=== PATIENT | female | born 1980 | race Caucasian/White ===

== ENCOUNTER → 2023-09-21 09:50 | Outpatient (REF) | payer OTHER, SELFPAY | LOC: HWRAD 09:50 | PROVIDERS: ATTENDING PHYSICIAN Physician Assistant Medical; FAMILY PHYSICIAN Physician Assistant; REFERRING PHYSICIAN Obstetrics & Gynecology | DX: Z15.01 Genetic susceptibility to malignant neoplasm of breast (principal); Z15.02 Genetic susceptibility to malignant neoplasm of ovary; Z15.09 Genetic susceptibility to other malignant neoplasm | CPT/HCPCS: 76830; 76856 ==

== ENCOUNTER → 2024-05-01 16:24 | Outpatient (REF) | payer OTHER, SELFPAY | LOC: RAD 16:24 | PROVIDERS: ATTENDING PHYSICIAN Obstetrics & Gynecology; FAMILY PHYSICIAN Family Medicine | DX: Z15.01 Genetic susceptibility to malignant neoplasm of breast (principal); Z15.02 Genetic susceptibility to malignant neoplasm of ovary; Z15.09 Genetic susceptibility to other malignant neoplasm | CPT/HCPCS: 76830; 76856 ==

== ENCOUNTER → 2024-11-05 10:23 | Outpatient (REF) | payer OTHER, SELFPAY | LOC: HWRAD 10:23 | PROVIDERS: ATTENDING PHYSICIAN Obstetrics & Gynecology; FAMILY PHYSICIAN Family Medicine | DX: Z15.01 Genetic susceptibility to malignant neoplasm of breast (principal); Z15.02 Genetic susceptibility to malignant neoplasm of ovary; Z15.09 Genetic susceptibility to other malignant neoplasm | CPT/HCPCS: 76830; 76856 ==

== ENCOUNTER → 2025-01-04 16:19 | Outpatient (REF) | payer OTHER, SELFPAY | LOC: RAD 16:19 | PROVIDERS: ATTENDING PHYSICIAN Physician Assistant Medical; FAMILY PHYSICIAN Family Medicine | DX: Z15.01 Genetic susceptibility to malignant neoplasm of breast (principal); Z15.02 Genetic susceptibility to malignant neoplasm of ovary; Z15.09 Genetic susceptibility to other malignant neoplasm; N83.292 Other ovarian cyst, left side | CPT/HCPCS: 76830; 76856 ==

== ENCOUNTER 2025-03-25 18:55 | Emergency (ER) | payer OTHER, SELFPAY ==
[2025-03-25 19:03] VITALS: BP 122/83
[2025-03-25 19:30] LABS: Hematocrit 35.0 % (37.0-47.0); Hemoglobin 11.7 g/dL (12.0-16.0); Mean Corp Hgb Conc. 33.4 g/dL (33.0-37.0); Mean Corpuscular Volume 89.5 fL (81.0-99.0); Nucleated Red Blood Cells % 0 %; Platelet Count 295 10^3/uL (130-400); Red Cell Dist. Width 12.8 % (11.5-14.5)
[2025-03-25 19:36] LABS: INR 0.96; PT 12.9 Sec (11.4-14.6)
[2025-03-25 19:51] LABS: ALT (SGPT) 13 U/L (0-35); AST (SGOT) 20 U/L (14-36); Albumin 4.2 g/dl (3.5-5.0); Alkaline Phosphatase 47 U/L (38-126); Blood Urea Nitrogen 12 mg/dl (7-17); Calcium 9.0 mg/dl (8.4-10.2); Carbon Dioxide 27 mmol/L (22-30); Chloride 103 mmol/L (98-107); Glucose 117 mg/dl (70-99); Potassium 4.6 mmol/L (3.5-5.1); Sodium 137 mmol/L (135-145); Total Protein 7.2 g/dl (6.3-8.2); eGFR > 60.00
[2025-03-25 20:03] LABS: Troponin I < 0.012 ng/ml
[2025-03-25 21:53] VITALS: BMI 23.4
[2025-03-25 21:58] VITALS: BP 121/71
--- NOTE | 2025-03-25 22:34 | ED.GENMED ---
History of Present Illness
<Vito Nettles DO, Resident - Last Filed: 03/26/25 02:33>
General
Chief Complaint: Heart Rate Problem
Source: patient
Exam Limitations: none
Time Seen by Provider: 03/25/25 22:05
Nursing documentation reviewed up to this point in time: agreed with
History of Present Illness
History of Present Illness:
Beulah Austin is a 44-year-old female with a past medical history of anxiety, sleep issues, distant history of collapsed lung. She presents with pain between her shoulder blades. Pain is present for 2 weeks. Pain is in the midline. Described
as sharp, constant. Pain is a constant 6-7/10. Pain is worse with laying down and better with standing up. Notes it is similar to a pain she experienced over the summer that was evaluated and effectively treated by a chiropractor. Has been
intermittently taking ibuprofen 600 to 800 mg at a time, with no relief.
Also endorses 1 week of shortness of breath. The sensation is described as a feeling of wanting to take a deep breath. Denies relation to the back pain. Denies any recent upper respiratory illnesses, cough, wheezing.
Also endorses 1 day of fluttering sensation in the chest. Denies any chest pain. States after she started experience this, she thought that she needed to be seen so she brought herself to the ED.
Endorses 1 isolated incident of dizziness approximately 5 days ago. Otherwise denies fevers, chills, pleuritic chest pain, chest pain, abdominal pain, nausea, vomiting, diarrhea, constipation.
Past History
<Vito Nettles DO, Resident - Last Filed: 03/26/25 02:33>
Past History
ED Past Medical History: Asthma (Mild), Other (Left spontaneous pneumothorax) and Other (Left chest tube)
Social History
Tobacco: Non-smoker
Alcohol: None
Drug: None
Personal:
Living: with family
Employment: Employed
Family History
Family History: Hypertension
Review of Systems
<Vito Nettles DO, Resident - Last Filed: 03/26/25 02:33>
Review of Systems
Allergies reviewed?: Yes
All Other Systems: ROS reviewed and negative except as documented in HPI and ROS
Phy Exam
<Vito Nettles DO, Resident - Last Filed: 03/26/25 02:33>
Physical Exam
Physical Exam:
General: Well-developed, well-nourished female in no acute distress.
HEENT: Normocephalic, atraumatic, sclera anicteric, EOMI
CV: Normal S1-S2, regular rate and rhythm, no murmurs rubs or gallops, no JVD. Radial pulses are 2+ and symmetric bilaterally.
Respiratory: Clear to auscultation bilaterally, no wheezing, no rales, no rhonchi
abdomen: Soft, nondistended, nontender to palpation in all 4 quadrants, positive bowel sounds in all 4 quadrants.
Neuro: Awake, alert, moving all fours
psych: Calm, normal affect
Scores
<Vito Nettles DO, Resident - Last Filed: 03/26/25 02:33>
Heart Failure Risk
Heart Failure Risk Score: Not Applicable
Heart Score for Chest Pain Patients
STEMI patient?: Not applicable
Withdrawal Assessment of Alcohol
Withdrawal Assessment Completed?: Not applicable
Course
<Vito Nettles DO, Resident - Last Filed: 03/26/25 02:33>
Orders/Labs/Results
Orders:
Orders
03/25/25 19:06
Electrocardiogram (*1) Urgent
Reason for Study: Chest Pain
Cardiac Monitoring- Treatment ONCE
EKG- Treatment ONCE
IV Insert/Care/Rem.- Treatment PRN
Chest [CR Chest - 2 Views ] Urgent
Comment:
Reason For Exam: chest/back discomfort
O2 Therapy [RESP] Urgent
Titrate/Wean O2 to maintain O2 sat greater than (%): 90
Special Instructions: Maintain sats >/=90%
Pulse Ox/spot Check [RESP] Urgent
Quantity: 1
Special Instructions: ON ROOM AIR
03/25/25 19:15
Complete Blood Count/With Diff Urgent
Comprehensive Metabolic Panel Urgent
Prothrombin Time Urgent
Troponin I Urgent
Abnormal Lab Results
03/25/25
19:15
RBC 3.91 L 10^6/uL
(4.20-5.40)
Hgb 11.7 L g/dL
(12.0-16.0)
Hct 35.0 L %
(37.0-47.0)
Glucose 117 H mg/dl
(70-99)
Total Bilirubin 0.1 L mg/dl
(0.2-1.3)
03/25/25 19:15
03/25/25 19:15
Vital Signs
Initial and Last Documented VS:
Initial Vital Signs
Temp Pulse Resp BP Pulse Ox
97.7 F 68 18 122/83 100
03/25/25 19:03 03/25/25 19:03 03/25/25 19:03 03/25/25 19:03 03/25/25 19:03
Last Documented Vital Signs
Temp Pulse Resp BP Pulse Ox
97.7 F 58 18 121/71 100
03/25/25 19:03 03/25/25 22:00 03/25/25 22:00 03/25/25 21:58 03/25/25 22:37
Soylt;Brody León DO - Last Filed: 03/25/25 23:13>
Orders/Labs/Results
Orders:
Orders
03/25/25 19:06
Electrocardiogram (*1) Urgent
Reason for Study: Chest Pain
Cardiac Monitoring- Treatment ONCE
EKG- Treatment ONCE
IV Insert/Care/Rem.- Treatment PRN
Chest [CR Chest - 2 Views ] Urgent
Comment:
Reason For Exam: chest/back discomfort
O2 Therapy [RESP] Urgent
Titrate/Wean O2 to maintain O2 sat greater than (%): 90
Special Instructions: Maintain sats >/=90%
Pulse Ox/spot Check [RESP] Urgent
Quantity: 1
Special Instructions: ON ROOM AIR
03/25/25 19:15
Complete Blood Count/With Diff Urgent
Comprehensive Metabolic Panel Urgent
Prothrombin Time Urgent
Troponin I Urgent
Abnormal Lab Results
03/25/25
19:15
RBC 3.91 L 10^6/uL
(4.20-5.40)
Hgb 11.7 L g/dL
(12.0-16.0)
Hct 35.0 L %
(37.0-47.0)
Glucose 117 H mg/dl
(70-99)
Total Bilirubin 0.1 L mg/dl
(0.2-1.3)
03/25/25 19:15
03/25/25 19:15
Vital Signs
Initial and Last Documented VS:
Initial Vital Signs
Temp Pulse Resp BP Pulse Ox
97.7 F 68 18 122/83 100
03/25/25 19:03 03/25/25 19:03 03/25/25 19:03 03/25/25 19:03 03/25/25 19:03
Last Documented Vital Signs
Temp Pulse Resp BP Pulse Ox
97.7 F 58 18 121/71 100
03/25/25 19:03 03/25/25 22:00 03/25/25 22:00 03/25/25 21:58 03/25/25 22:37
<Vito Nettles DO, Resident - Last Filed: 03/26/25 02:33>
MDM/Problems Addressed
Differential Diagnosis Includes:
Musculoskeletal Pain, pleuritic chest pain, ACS r/o, aortic dissection r/o, pericarditis r/o
MDM/Problems Addressed:
44F w/ PMHx of anxiety, sleep disorder, and distant history of PTX. Presented with pain behind the shoulder blades that is similar to pain she has had in the past that was effectively treated by chiropractic. She otherwise does not exhibit any
positive exam findings other than paraspinal muscle hypertonicity. EKG NSR, telemetry without events, troponin negative, no pulse differential between arms. CXR negative. Labs unremarkable. Suspect this is exacerbation of musculoskeletal back pain.
Patient provided with muscle relaxant and COX2. Patient advised of side effects of flexeril and not to take with other sedative medications. Patient to follow up with her primary care provider at [facility] for additional recommendations.
<Vito Nettles DO, Resident - Last Filed: 03/26/25 02:33>
*Pulse Oximetry
SaO2: 100
Oxygen Mode of Delivery: Room air
Patient hypoxic: no
*Critical Care Note
Total Time (30-74mins, 75-104mins- exclusive of procedures): Not Applicable
ED Attending Note
<Vito Nettles DO, Resident - Last Filed: 03/26/25 02:33>
-
Portions of this chart may have been created with voice recognition software.� Occasional wrong word or��sound alike� substitutions may have occurred due to the inherent limitations of voice recognition software.
<Brody León DO - Last Filed: 03/25/25 23:13>
ED Attending Note
Patient seen and examined by attending physician: Yes
I performed a history and physical exam of patient and discussed management with resident, I reviewed resident's note and agree with documented findings and plan of care.: Yes
ED Attending Note:
I agree with Dr. Nettles's note.
Patient presents with pain in her thoracic region which has been present for 2 weeks. Today she began having some palpitations which prompted her to come get checked out. No true shortness of breath. No pleuritic nature to the pain.
General: Awake, Alert, Oriented X3. No acute distress.
Vitals: unremarkable
Head: Atraumatic
Eyes: Pupils equal, EOMI
Neck: Trachea midline
Lungs: Clear and equal b/l
Heart: Regular rate, no murmurs
Abd: Soft, Nontender, No pulsatile mass
Neuro: Nonfocal
Skin: Warm, dry, no rash
Extremities: pulses equal b/l, no edema
EKG: Sinus bradycardia, no ischemic changes or changes to suggest pericarditis.
Suspect musculoskeletal back pain. Will add muscle relaxant and Benitez 2.
Chest x-ray: Normal
Discharge Plan
Departure
Patient Disposition: Home (Routine Discharge)
Date of Disposition: 03/25/25
Time of Disposition: 23:14
Patient with high blood pressure during this ER visit?: No
Condition: Good
Discharge Problem:
Musculoskeletal back pain, Anxiety
Prescriptions:
New
cyclobenzaprine 15 mg capsule,extended release 24hr
15 mg PO DAILY PRN (Reason: Back Pain) Qty: 7 0RF
celecoxib 200 mg capsule
200 mg PO DAILY Qty: 5 0RF
No Action
PNV with calc [id number] 1 EACH tablet
1 tab PO DAILY
ibuprofen 600 MG tablet
600 mg PO Q4HPRN PRN (Reason: moderate pain/cramps) Qty: 30 0RF
Referrals:
RISHABH WEBB [Other]
Activity Restrictions/Additional Instructions:
Flexeril may make you drowsy. Advised to take at night time. Do not drive or operate heavy machinery until you know how you react to the medication.
You noted that you take an as needed benzodiazepine. Avoid taking Flexeril and the benzodiazepine on the same day.
Follow up with your primary care provider for additional recommendations.
Interventions
Interventions:
*General Assessment Last Done: 03/25/25 21:54
*Neglect/Abuse Screening Last Done: 03/25/25 19:03
*ED COVID-19 Vaccine History Last Done: 03/25/25 21:54
*ED Influenza Vaccine History Last Done: 03/25/25 21:54
[facility] Fall Risk Assessment Tool Last Done: 03/25/25 21:53
*Risk Screen - Suicide (C-SSRS) Last Done: 03/25/25 19:03
*Nursing Disposition Last Done: 03/25/25 23:37
ED- Cardiac Assessment Last Done: 03/25/25 21:54
ED- Pulmonary Assessment Last Done: 03/25/25 21:54
Discharge Date and Time
Discharge Date/Time: 03/25/25 23:39
Print Language: SLOVAK
== END 2025-03-25 23:39 | disposition home or self-care (01) ==
LOC: EMR 18:55
PROVIDERS: Emergency Medicine; EMERGENCY PHYSICIAN Emergency Medicine
DX: M79.18 Myalgia, other site (principal); R06.02 Shortness of breath; F41.9 Anxiety disorder, unspecified; J45.909 Unspecified asthma, uncomplicated; Z87.09 Personal history of other diseases of the respiratory system
CPT/HCPCS: 99285; 71046; 80053; 84484; 85025; 85610; 93005